=== PATIENT | female | born 1990 | race Caucasian/White ===

== ENCOUNTER 2016-07-03 15:26 | Emergency (ER) | payer OTHER, SELFPAY ==
[~2016-07-03 15:26] MED LIST: ADDERALL 15 MG15 MG PO; ADDERALL 20 MG20 MG PO; BACTRIM DS TABL1 TAB PO; CIPRO500 M1 PO; CIPRO500 M2 PO; COLACE100 M1 PO; COLACE100 MG PO; CYCLOBENZAPRINE10 M1 PO; DEPO-PROVE150 MG/11 IM; HYDROCODON-ACE1 EAC7 PO; IBUPROFEN800 M1 PO; IBUPROFEN800 MG PO; IRON325 ( 65 PO; KEFLEX500 M4 PO; KEFLEX500 MG/CA1 PO; LEXAPRO10 MG PO; MACROBID 100 M100 M1 PO; MACROBID 100 M100 MG PO; MACROBID100 MG/CA1 PO; METHERGINE0.2 MG PO; MOTRIN400 MG PO; NORCO 5-325 TA1 EACH PO; NORCO 5/325 TAB1 TAB PO; NORCO 7.5/325 T1 TAB PO; PERCOCET 5MG/AP1 TAB PO; PHENERGAN12.5 MG PO; PRENATAL FORMU1 EAC2 PO; PRENATAL-U CAPS1 CAP PO; PRENATAL1 EACH PO; SENOKOT-S TABL1 EACH PO; TYLENOL #31 TA1 PO; ZANTAC; ZOFRAN ODT4 MG/UDTAB PO; ZOFRAN4 M2 PO; ZOFRAN8 MG PO; ZOLOFT50 MG PO; [UNRECOGNIZED DRUG - OTHER] MC
[2016-07-03] MEDS ORDERED: AMOXICILLIN500 M1 PO (17:14)
== END 2016-07-03 17:31 ==
LOC: EDMED 15:26
DX: L53.9 Erythematous condition, unspecified (principal); T37.8X5A Adverse effect of other specified systemic anti-infectives and antiparasitics, initial encounter; Z87.440 Personal history of urinary (tract) infections
CPT/HCPCS: J0171